=== PATIENT | female | born 1965 | race Caucasian/White ===

== ENCOUNTER → 2016-06-29 | Outpatient (CLI) | payer MEDICARE, OTHER ==
[~2016-06-29] MED LIST: ELAVIL 25 MG TA25 MG PO; K-DUR TAB 10 M10 MEQ PO; LANTUS100 UNIT/1 SC; LINZESS290 MCG PO; LOPRESSOR 25 MG25 MG PO; MELATONIN3 MG PO; OXYCONTIN20 MG PO; PAXIL40 MG PO; ROXICODONE15 MG PO; SALINE NASAL SP88 ML; SYNTHROID88 MCG PO; TOPAMAX100 MG PO; ZOCOR10 MG PO; ZOFRAN8 MG PO; ZYRTEC10 MG PO
== END ==
LOC: OPSV 07:26
DX: C91.10 Chronic lymphocytic leukemia of B-cell type not having achieved remission (principal)
CPT/HCPCS: 36430; 36592; 85049; 86900; 86901; J7050; P9035; Q0163

== ENCOUNTER → 2016-07-06 | Outpatient (CLI) | payer MEDICARE, OTHER ==
[2016-07-06 13:55] LABS: HEMOGLOBIN 7.8 gm/dl (12.3-15.3)
== END ==
LOC: LAB 13:08
PROVIDERS: Internal Medicine Hematology & Oncology
DX: C80.1 Malignant (primary) neoplasm, unspecified (principal); D63.0 Anemia in neoplastic disease
CPT/HCPCS: 36415; 85014; 85018; 86850; 86900; 86901; 86920; P9016; P9035

== ENCOUNTER → 2016-07-07 | Outpatient (CLI) | payer MEDICARE, OTHER | LOC: OPSV 09:30 | DX: D63.0 Anemia in neoplastic disease (principal) | CPT/HCPCS: 36430; 36592; 85049; J7050; P9016; P9035; Q0163 ==

== ENCOUNTER → 2016-08-01 | Outpatient (CLI) | payer MEDICARE, OTHER ==
[~2016-08-01] VITALS: Ht 175.3 cm; Wt 94.8 kg
== END ==
LOC: OPSV 07-31 08:30
DX: D69.6 Thrombocytopenia, unspecified (principal); Z88.0 Allergy status to penicillin; Z88.1 Allergy status to other antibiotic agents
CPT/HCPCS: 96365; 96366; J3370; J7070

== ENCOUNTER → 2016-08-02 | Outpatient (CLI) | payer MEDICARE ==
[2016-08-02 16:41] LABS: HEMOGLOBIN 8.6 gm/dl (12.3-15.3); RED BLOOD COUNT 2.8 M/UL (4.00-5.10); WHITE BLOOD COUNT 8.9 K/UL (4.5-11.0)
== END ==
LOC: LAB 15:41
PROVIDERS: Internal Medicine Hematology & Oncology
DX: C91.00 Acute lymphoblastic leukemia not having achieved remission (principal); I12.9 Hypertensive chronic kidney disease with stage 1 through stage 4 chronic kidney disease, or unspecified chronic kidney disease; N18.9 Chronic kidney disease, unspecified; L03.213 Periorbital cellulitis
CPT/HCPCS: 80048; 85025

== ENCOUNTER → 2016-08-03 | Outpatient (CLI) | payer MEDICARE ==
[2016-08-03 13:27] LABS: HEMOGLOBIN 9.6 gm/dl (12.3-15.3); RED BLOOD COUNT 3.08 M/UL (4.00-5.10)
[2016-08-03 13:28] LABS: WHITE BLOOD COUNT 11.2 K/UL (4.5-11.0)
== END ==
LOC: OPSV 12:51
PROVIDERS: Internal Medicine Infectious Disease
DX: D69.6 Thrombocytopenia, unspecified (principal); Z88.0 Allergy status to penicillin; Z88.7 Allergy status to serum and vaccine; Z88.1 Allergy status to other antibiotic agents; Z88.8 Allergy status to other drugs, medicaments and biological substances
CPT/HCPCS: 36592; 80053; 80202; 85027; 96365; 96366; J3370; J7070

== ENCOUNTER → 2016-08-05 | Outpatient (CLI) | payer MEDICARE | LOC: OPSV 10:54 | DX: D69.6 Thrombocytopenia, unspecified (principal); Z88.0 Allergy status to penicillin; Z88.7 Allergy status to serum and vaccine; Z88.1 Allergy status to other antibiotic agents; Z88.8 Allergy status to other drugs, medicaments and biological substances | CPT/HCPCS: 96365; J3370; J7070 ==

== ENCOUNTER → 2016-08-06 | Outpatient (CLI) | payer MEDICARE ==
[~2016-08-06] VITALS: Ht 175.3 cm; Wt 94.8 kg
== END ==
LOC: OPSV 15:58
DX: D64.9 Anemia, unspecified (principal)
CPT/HCPCS: 36430; 36592; 86900; 86901; J7050; P9035; Q0163

== ENCOUNTER → 2016-08-07 | Outpatient (CLI) | payer MEDICARE ==
[~2016-08-07] VITALS: Ht 175.3 cm; Wt 95.0 kg
== END ==
LOC: OPSV 07:58
DX: D69.6 Thrombocytopenia, unspecified (principal)
CPT/HCPCS: 96365; 96366; J3370; J7070

== ENCOUNTER → 2016-08-09 | Outpatient (CLI) | payer MEDICARE ==
[~2016-08-09] VITALS: Ht 175.3 cm; Wt 94.8 kg
[2016-08-09 12:47] LABS: HEMOGLOBIN 8.7 gm/dl (12.3-15.3); RED BLOOD COUNT 2.74 M/UL (4.00-5.10)
== END ==
LOC: OPSV 11:00
PROVIDERS: Internal Medicine Infectious Disease
DX: D69.6 Thrombocytopenia, unspecified (principal); Z88.0 Allergy status to penicillin; Z88.1 Allergy status to other antibiotic agents; Z88.8 Allergy status to other drugs, medicaments and biological substances; Z88.7 Allergy status to serum and vaccine
CPT/HCPCS: 36592; 80053; 80202; 85027; 96365; 96366; J3370; J7070

== ENCOUNTER → 2016-08-12 | Outpatient (CLI) | payer MEDICARE ==
[~2016-08-12] VITALS: Ht 175.3 cm; Wt 94.8 kg
== END ==
LOC: OPSV 14:56
DX: D64.9 Anemia, unspecified (principal)
CPT/HCPCS: 36430; 36592; 86900; 86901; J7050; P9035; Q0163

== ENCOUNTER → 2016-08-17 | Outpatient (CLI) | payer MEDICARE ==
[~2016-08-17] VITALS: Ht 175.3 cm; Wt 94.8 kg
== END ==
LOC: OPSV 07:53
DX: D64.9 Anemia, unspecified (principal)
CPT/HCPCS: 36430; 36592; 86850; 86900; 86901; 86920; J7050; P9016; P9035; Q0163

== ENCOUNTER → 2016-08-31 | Outpatient (CLI) | payer MEDICARE ==
[~2016-08-31] VITALS: Ht 175.3 cm; Wt 92.1 kg
== END ==
LOC: OPSV 14:47
DX: D64.9 Anemia, unspecified (principal)
CPT/HCPCS: 36430; 36592; 85049; 86900; 86901; J7050; P9037; Q0163

== ENCOUNTER → 2016-09-07 | Outpatient (CLI) | payer MEDICARE ==
[~2016-09-07] VITALS: Ht 175.3 cm; Wt 92.1 kg
[2016-09-07 11:12] LABS: HEMOGLOBIN 8.1 gm/dl (12.3-15.3)
== END ==
LOC: OPSV 09:47
PROVIDERS: Internal Medicine Hematology & Oncology
DX: D64.9 Anemia, unspecified (principal)
CPT/HCPCS: 36430; 36592; 85018; 85049; 86850; 86900; 86901; 86920; J7050; P9016; P9035; Q0163

== ENCOUNTER → 2016-09-14 | Outpatient (CLI) | payer MEDICARE ==
[~2016-09-14] VITALS: Ht 175.3 cm; Wt 92.1 kg
== END ==
LOC: OPSV 08:44
DX: D64.9 Anemia, unspecified (principal)
CPT/HCPCS: 36430; 36592; 85049; 86900; 86901; J7050; P9035; Q0163

== ENCOUNTER → 2016-09-23 | Outpatient (CLI) | payer MEDICARE ==
[~2016-09-23] VITALS: Ht 175.3 cm; Wt 92.1 kg
[2016-09-23 09:04] LABS: HEMOGLOBIN 8.8 gm/dl (12.3-15.3)
== END ==
LOC: OPSV 08:30
PROVIDERS: Internal Medicine Hematology & Oncology
DX: D64.9 Anemia, unspecified (principal)
CPT/HCPCS: 36430; 36592; 85014; 85018; 85049; 86850; 86900; 86901; 86920; J7050; P9016; P9035; Q0163

== ENCOUNTER → 2016-09-30 | Outpatient (CLI) | payer MEDICARE ==
[~2016-09-30] VITALS: Ht 175.3 cm; Wt 92.1 kg
== END ==
LOC: OPSV 14:00
DX: D64.9 Anemia, unspecified (principal)
CPT/HCPCS: 36430; 36592; 85049; 86900; 86901; J7050; P9035; Q0163

== ENCOUNTER → 2016-10-05 | Outpatient (CLI) | payer MEDICARE ==
[~2016-10-05] VITALS: Ht 175.3 cm; Wt 92.1 kg
== END ==
LOC: OPSV 11:40
DX: D64.9 Anemia, unspecified (principal)
CPT/HCPCS: 36430; 36592; 86850; 86900; 86901; 86920; J7050; P9016; Q0163

== ENCOUNTER → 2016-10-12 | Outpatient (CLI) | payer MEDICARE ==
[~2016-10-12] VITALS: Ht 175.3 cm; Wt 92.1 kg
== END ==
LOC: OPSV 13:56
DX: D64.9 Anemia, unspecified (principal)
CPT/HCPCS: 36430; 36592; 85049; 86900; 86901; J7050; P9035; Q0163